=== PATIENT | male | born 1980 | race Caucasian/White ===

== ENCOUNTER 2019-10-29 06:28 | Emergency (ER) | payer MEDICAID, MEDICARE, SELFPAY ==
[2019-10-29 06:33] VITALS: BP 112/71
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
--- NOTE | 2019-10-29 06:47 | NUR ---
PT UNSURE WHAT MEDICATIONS HE IS SUPPOSED TO BE TAKING.
--- NOTE | 2019-10-29 07:12 | NUR ---
REPORT GIVEN TO DIMITRIS NOLASCO
[2019-10-29 07:15] LABS: BASOPHILS % (AUTO) 1 % (0-1); EOSINOPHILS # (AUTO) 0.19 x10^3/uL (0-0.4); EOSINOPHILS % (AUTO) 2 % (1-7); LYMPHOCYTES # (AUTO) 3.94 x10^3/uL (1-3.4); LYMPHOCYTES % (AUTO) 41 % (22-44); MD NO; MEAN CORPUSCULAR HEMOGLOBIN 31.6 pg (27.5-34.5); MEAN CORPUSCULAR HGB CONC 33.7 g/dL (33.2-36.2); MEAN CORPUSCULAR VOLUME 93.5 fL (81-97); MONOCYTES # (AUTO) 0.98 x10^3/uL (0.2-0.8); MONOCYTES % (AUTO) 10 % (2-9); NEUTROPHILS # (AUTO) 4.41 x10^3/uL (1.8-6.8); NEUTROPHILS % (AUTO) 46 % (42-75); PLATELET COUNT 200 x10^3/uL (130-400); RED BLOOD COUNT 4.79 x10^6/uL (4.38-5.82); RED CELL DISTRIBUTION WIDTH 14.1 % (9.4-14.8)
--- NOTE | 2019-10-29 07:15 | NUR ---
REPORT RECEIVED FROM CLAUDE NOLASCO. PT RESTING ON Chatterous W/ CALL LIGHT IN REACH. RESP EVEN AND UNLABORED, JUAN.
[2019-10-29 07:27] LABS: ALANINE AMINOTRANSFERASE 31 U/L (12-78); ALBUMIN 3.8 g/dL (3.4-5.0); ANION GAP 8 mmol/L (5-15); CALCIUM 8.2 mg/dL (8.5-10.1); CHLORIDE 110 mmol/L (98-107); CREATININE 0.99 mg/dL (0.7-1.3)
[2019-10-29 07:29] LABS: ALKALINE PHOSPHATASE 61 U/L (45-117); BILIRUBIN,TOTAL 0.4 mg/dL (0.2-1.0); TOTAL PROTEIN 7.1 g/dL (6.4-8.2)
--- NOTE | 2019-10-29 07:43 | NUR ---
PT AMBULATORY W/ A STEADY GAIT. DENIES SI/HI.
--- NOTE | 2019-10-29 08:00 | NUR ---
Patient given discharge instructions and they have confirmed that they understand the instructions. Patient ambulatory with steady gait.
== END 2019-10-29 08:01 | disposition home or self-care (01) ==
LOC: ED 07:11
DX: F10.120 Alcohol abuse with intoxication, uncomplicated (principal); K64.4 Residual hemorrhoidal skin tags; F32.9 Major depressive disorder, single episode, unspecified; Y90.0 Blood alcohol level of less than 20 mg/100 ml
CPT/HCPCS: 36415; 80053; 80307; 85025; 99283

== ENCOUNTER 2019-11-28 23:05 | Emergency (ER) | payer MEDICARE ==
[~2019-11-28] VITALS: Ht 180.3 cm; Wt 65.0 kg
[2019-11-28 23:07] VITALS: BP 138/88
[2019-11-29] MEDS ORDERED: IBUPROFEN 600 MG TABLET ONE (00:05)
[2019-11-29] MEDS ORDERED: ACETAMINOPHEN 500 MG TABLET ONE (00:05)
[2019-11-29] MEDS ORDERED: ACETAMINOPHEN 500 MG TABLET PO ONE (00:30)
[2019-11-29] MEDS ORDERED: IBUPROFEN 600 MG TABLET PO ONE (00:30)
== END 2019-11-29 00:36 | disposition home or self-care (01) ==
LOC: ED 11-29 00:10
DX: G89.11 Acute pain due to trauma (principal); M79.641 Pain in right hand; F17.290 Nicotine dependence, other tobacco product, uncomplicated
CPT/HCPCS: 99283; 99406

== ENCOUNTER 2020-01-27 08:40 | Emergency (ER) | payer MEDICARE ==
[~2020-01-27] VITALS: Ht 180.3 cm; Wt 75.0 kg
[2020-01-27 09:30] LABS: ALANINE AMINOTRANSFERASE 28 U/L (12-78); ANION GAP 8 mmol/L (5-15); BASOPHILS # (AUTO) 0.07 x10^3/uL (0-0.1); BASOPHILS % (AUTO) 1 % (0-1); CALCIUM 8.5 mg/dL (8.5-10.1); CHLORIDE 114 mmol/L (98-107); EOSINOPHILS # (AUTO) 0.16 x10^3/uL (0-0.4); EOSINOPHILS % (AUTO) 1 % (1-7); LYMPHOCYTES # (AUTO) 4.15 x10^3/uL (1-3.4); LYMPHOCYTES % (AUTO) 34 % (22-44); MD NO; MEAN CORPUSCULAR HEMOGLOBIN 31.9 pg (27.5-34.5); MEAN CORPUSCULAR HGB CONC 33.7 g/dL (33.2-36.2); MEAN CORPUSCULAR VOLUME 94.6 fL (81-97); MEAN PLATELET VOLUME 7.3 fL (7.4-10.4); MONOCYTES # (AUTO) 1.07 x10^3/uL (0.2-0.8); MONOCYTES % (AUTO) 9 % (2-9); NEUTROPHILS # (AUTO) 6.64 x10^3/uL (1.8-6.8); NEUTROPHILS % (AUTO) 55 % (42-75); PLATELET COUNT 217 x10^3/uL (130-400); RED BLOOD COUNT 4.78 x10^6/uL (4.38-5.82); SALICYLATE LEVEL 4.5 mg/dL (2.8-20.0)
[2020-01-27 09:32] LABS: ALKALINE PHOSPHATASE 55 U/L (45-117); BILIRUBIN,TOTAL 0.3 mg/dL (0.2-1.0); TOTAL PROTEIN 7.6 g/dL (6.4-8.2)
--- NOTE | 2020-01-27 09:35 | NUR ---
ASSISTED PATIENT TO THE BATHROOM TO VOID. HE IS UNSTEADY ON HIS FEET AND IS REFUSING TO GIVE URINE AT THIS TIME.
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
--- NOTE | 2020-01-27 12:35 | NUR ---
PT MOVED TO ROOM 4. PT CONTINUES TO SLEEP AND REMAINS SAFE. PT AWAKENS WITH VERBAL STIMULATION.
[2020-01-27 13:51] VITALS: BP 93/53
--- NOTE | 2020-01-27 13:51 | NUR ---
VS UPDATED. PT SLEEPING BUT AWAKENS TO VERBAL COMMAND. SIDE RAILS UP X 2 FOR SAFETY. CALL BUTTON WITHIN REACH.
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
--- NOTE | 2020-01-27 17:35 | NUR ---
Patient given discharge instructions and they have confirmed that they understand the instructions. Patient ambulatory with steady gait.
== END 2020-01-27 17:36 | disposition home or self-care (01) ==
LOC: ED 09:35
DX: R45.851 Suicidal ideations (principal); F10.220 Alcohol dependence with intoxication, uncomplicated; Y90.9 Presence of alcohol in blood, level not specified
CPT/HCPCS: 36415; 80053; 80307; 85025; 99283

== ENCOUNTER 2020-04-27 00:10 | Emergency (ER) | payer MEDICARE | END 2020-04-27 00:44 | disposition left against medical advice (07) | LOC: ED 00:20 | DX: F10.129 Alcohol abuse with intoxication, unspecified (principal); Y90.9 Presence of alcohol in blood, level not specified; Z53.21 Procedure and treatment not carried out due to patient leaving prior to being seen by health care provider ==